=== PATIENT | female | born 1995 | race Caucasian/White ===

== ENCOUNTER 2018-12-24 10:09 | Inpatient (IN) | payer OTHER ==
[~2018-12-24] VITALS: Ht 160 cm; Wt 65.8 kg
[2018-12-24] MEDS ORDERED: OXYTOCIN 30 UNITS/LACT RINGERS 500 ML IV PRN (11:14)
[2018-12-24] MEDS ORDERED: RINGERS SOLUTION,LACTATED 1,000 ML IV PRN (11:14)
[2018-12-24] MEDS ORDERED: OXYTOCIN 30 UNITS/LACT RINGERS 500 ML IV ONE (11:14)
[2018-12-24] MEDS ORDERED: DINOPROSTONE 10 MG VAGINAL SUPPOSITORY EC ONE (11:15)
[2018-12-24] MEDS ORDERED: METOCLOPRAMIDE HCL 5 MG/ML 2 ML VIAL IVP PRN (11:15)
[2018-12-24] MEDS ORDERED: METHYLERGONOVINE MALEATE 0.2 MG/ML VIAL IM PRN (11:15)
[2018-12-24] MEDS ORDERED: CITRIC ACID/SODIUM CITRATE 30 ML SOLUTION UDCUP PO PRN (11:15)
[2018-12-24 12:14] LABS: BASOPHILS % (AUTO) 0.2 % (0.0-2.0); EOSINOPHILS % (AUTO) 0.8 % (1.0-6.0); HEMATOCRIT 33.7 % (36-46); HEMOGLOBIN 10.9 g/dL (12.0-16.0); LYMPHOCYTES # (AUTO) 2.2 K/uL (1.0-4.8); LYMPHOCYTES % (AUTO) 22.4 % (22.0-44.0); MEAN CORPUSCULAR HGB CONC 32.5 G/dL (31.0-37.0); MEAN CORPUSCULAR VOLUME 95 fL (80-100); MONOCYTES # (AUTO) 0.7 K/uL (0.1-1.0); MONOCYTES % (AUTO) 7.4 % (2.0-9.0); NEUTROPHILS # (AUTO) 6.9 K/uL (1.8-7.7); NEUTROPHILS % (AUTO) 69.2 % (40.0-70.0); PLATELET COUNT (AUTO) 217 K/uL (150-450); RED BLOOD CELL COUNT(AUTO) 3.53 MIL/uL (4.00-5.20); RED CELL DISTRIBUTION WIDTH 13.2 % (11.5-14.5)
[2018-12-24 12:55] VITALS: BP 114/55
[2018-12-24] MEDS: RINGERS SOLUTION,LACTATED 1,000 ML IV SCH ×3 (18:29→21:37)
[2018-12-24] MEDS ORDERED: OXYGEN THERAPY IH SCH (20:00)
[2018-12-24] MEDS: FentaNYL CITRATE-PF 100 MCG/2 ML VIAL IVP PRN ×4 (20:11→21:35)
[2018-12-24] MEDS ORDERED: ROPIVACAINE HCL/PF 0.2% 100 ML ED ONE (21:43)
[2018-12-24] MEDS ORDERED: ROPIVACAINE HCL/PF 0.2% 100 ML ED PRN (22:11)
[2018-12-24] MEDS ORDERED: ONDANSETRON HCL 4 MG/2 ML VIAL IVP PRN (22:15)
[2018-12-24] MEDS ORDERED: NALBUPHINE HCL 10 MG/ML VIAL IVP PRN (22:15)
[2018-12-24] MEDS ORDERED: DiphenhydrAMINE HCL 50 MG/ML VIAL IVP PRN (22:15)
[2018-12-25] MEDS ORDERED: CeFAZolin 2 GM/DEXTROSE 50 ML IV ONE (06:00)
[2018-12-25] MEDS ORDERED: ACETAMINOPHEN/CODEINE 300-30 MG TABLET PO PRN ×2 (06:45)
[2018-12-25] MEDS ORDERED: GLYCERIN/WITCH HAZEL LEAF 40 PADS JAR TP PRN (06:45)
[2018-12-25] MEDS ORDERED: BENZOCAINE 20%/MENTHOL 56 GM SPRAY CANISTER TP PRN (06:45)
[2018-12-25] MEDS ORDERED: RINGERS SOLUTION,LACTATED 1,000 ML IV ONE (07:01)
[2018-12-25] MEDS: LANOLIN 7 GM OINTMENT TP PRN ×2 (07:05→21:20)
[2018-12-25] MEDS: MAGNESIUM HYDROXIDE SUSPENSION 30 ML UDCUP PO SCH ×2 (08:07→21:19)
[2018-12-25] MEDS: IBUPROFEN 800 MG TABLET PO SCH ×3 (08:12→21:18)
[2018-12-26] MEDS: IBUPROFEN 800 MG TABLET PO SCH ×2 (03:17→08:56)
[2018-12-26] MEDS: MAGNESIUM HYDROXIDE SUSPENSION 30 ML UDCUP PO SCH (08:57)
[2018-12-26] MEDS ORDERED: ACET-2247 PO (09:24)
[2018-12-26] MEDS ORDERED: IBUP-2070 PO (09:25)
[2018-12-26] MEDS ORDERED: DSS100 PO (09:26)
== END 2018-12-26 11:10 | disposition home or self-care (01) | DRG 807 ==
LOC: OBSVTOIN 10:09 → 4S 10:09
PROVIDERS: ADMIT Obstetrics & Gynecology; ATTEND Obstetrics & Gynecology
PROC: 10D07Z6 Extraction of Products of Conception, Vacuum, Via Natural or Artificial Opening (ICD-10-PCS; principal; 2018-12-25)
PROC: 0W8NXZZ Division of Female Perineum, External Approach (ICD-10-PCS; 2018-12-25)
PROC: 3E0R3BZ Introduction of Anesthetic Agent into Spinal Canal, Percutaneous Approach (ICD-10-PCS; 2018-12-25)
PROC: 00HU33Z Insertion of Infusion Device into Spinal Canal, Percutaneous Approach (ICD-10-PCS; 2018-12-25)
DX: O69.1XX0 Labor and delivery complicated by cord around neck, with compression, not applicable or unspecified (principal); Z37.0 Single live birth; Z3A.40 40 weeks gestation of pregnancy
CPT/HCPCS: 86850; 86900; 86901; J0690; J2590; J2795; J3010; J7120